=== PATIENT | male | born 1970 | race Caucasian/White ===

== ENCOUNTER → 2021-04-21 14:02 | Outpatient (CLI) | payer OTHER, SELFPAY ==
--- NOTE | ~2021-04-21 | MR_ITS ---
EXAMINATION: MR brain/brain stem wo/w con DATE: 04/21/2021 14:58 INDICATION: Headache, unspecified. TECHNIQUE: Magnetic resonance imaging (MRI) of the brain and brainstem was performed without and with 17 mL MultiHance intravenous contrast. Sequences included sagittal and axial T1-weighted FSE, axial diffusion-weighted FS EPI, axial T2*-weighted GRE, axial T2-weighted FLAIR Propeller, and axial T2-we ighted Propeller. Postcontrast sequences included axial and coronal T1-weighted FSE. Apparent diffusi on coefficient (ADC) maps were created. COMPARISON: Head CT 04/09/2014 FINDINGS: There is no intracranial hemorrhage, acute infarction, or abnormal intracranial mass lesion . The ventricles are normal in size. The mastoid air cells are normal. The paranasal sinuses are alli r. The orbits are normal. IMPRESSION: 1. Normal brain. Reviewed, dictated and finalized at location A. IMPRESSION: 1. Normal brain.
[2021-04-21 14:36] LABS: Estimated Glomerular Filt Rate > 60
== END ==
PROVIDERS: PCP Family Medicine; Visit Provider Family Medicine
DX: R51.9 Headache, unspecified (principal)
CPT/HCPCS: 70553; A9577

== ENCOUNTER 2022-09-24 09:05 | Outpatient (CLI) | payer OTHER, SELFPAY ==
[2022-09-24 11:42] LABS: Kit Draw Collected
== END 2022-09-24 09:06 | disposition home or self-care (01) ==
LOC: ANHGOSHLAB 09:06
PROVIDERS: PCP Family Medicine; Visit Provider Family Medicine
DX: R00.1 Bradycardia, unspecified (principal)
CPT/HCPCS: 36415

== ENCOUNTER 2022-11-23 09:33 | Outpatient (CLI) | payer OTHER, SELFPAY ==
--- NOTE | 2022-11-23 09:48 | ECHO_ITS ---
Patient Info Name: Dandy Fuller Age: 52 years : 1970 Gender: Male Ht: 74 in Wt: 185 lbs BSA: 2.09 m2 HR: 38 bpm BP: 122 / 75 mmHg Heart Rhythm: Sinus Rhythm Technical Quality: Good Exam Date: 11/23/2022 9:54 AM Exam Location: [facility] Patient Status: Outpatient Admit Date: 11/23/2022 Staff Ordering Physician: Abel Wright DO Chef Instructor: Yovana Cruz RDCS Attending Provider: Abel Wright DO Referring Physician: Kyle BETTENCOURT; Exam Type: CA echo doppler color flow Study Info Indications I48.92 - UNSPECIFIED ATRIAL FLUTTER Complete two-dimensional, color flow and Doppler transthoracic echocardiogram is performed. Summary 1. Complete two-dimensional, color flow and Doppler transthoracic echocardiogram is performed. 2. Left ventricular chamber dimension is mildly enlarged. 3. Left ventricular systolic function is normal, estimated at 55-60%. 4. The left ventricular diastolic function is grade I diastolic dysfunction. 5. E/e' 3 is not elevated. 6. Right atrial chamber dimension is mildly enlarged. 7. There is trace tricuspid valve regurgitation. 8. No pulmonary hypertension, estimated pulmonary arterial systolic pressure is 23 mmHg. Left Ventricle E/e' 3 is not elevated. Left ventricular chamber dimension is mildly enlarged. Left ventricular systolic function is normal, estimated at 55-60%. The left ventricular diastolic function is grade I diastolic dysfunction. Right Ventricle Right ventricular systolic function is normal and with normal TAPSE 2.4 cm. Right ventricular chamber dimension is normal. Left Atria Left atrial chamber dimension is normal. Right Atria Right atrial chamber dimension is mildly enlarged. Aortic Valve The aortic valve is trileaflet. There is no aortic valve stenosis. There is no aortic valve regurgitation. Pulmonic Valve There is no pulmonic regurgitation. Mitral Valve There is no mitral valve stenosis. There is no mitral valve regurgitation. Tricuspid Valve There is trace tricuspid valve regurgitation. No pulmonary hypertension, estimated pulmonary arterial systolic pressure is 23 mmHg. Pericardium/Pleural There is no pericardial effusion. Inferior Vena Cava Normal inferior vena cava with >50% collapse upon inspiration consistent with normal right atrial pressure, 5 mmHg. Aorta The aortic root size at the sinus of Valsalva is normal. Left Ventricular Outflow Tract Name Value Normal LVOT 2D LVOT Diameter 2.3 cm LVOT Doppler LVOT Peak Gradient 6 mmHg LVOT Mean Gradient 3 mmHg LVOT VTI 28 cm LVOT VTI/AV VTI Ratio 0.9 LVOT Stroke Volume 120 ml LVOT CO 4.3 l/min LVOT CI 2.0 l/min/m2 Pulmonic Valve Name Value Normal RVOT Doppler
== END 2022-11-23 09:34 | disposition home or self-care (01) ==
PROVIDERS: PCP Family Medicine; Visit Provider Internal Medicine Cardiovascular Disease
DX: I48.92 Unspecified atrial flutter (principal)
CPT/HCPCS: 93306

== ENCOUNTER 2023-01-05 08:28 | Outpatient (CLI) | payer OTHER, SELFPAY ==
--- NOTE | 2023-01-07 15:47 | WPDHOMESLEEP ---
Sleep Study - Home Unattended Date of Study: 01/05/23 Ordering Provider: Abel Wright DO Interpreting Provider: Balbina Bonilla MD Home Sleep Study Type: Watch PAT Height: 1.88 m Weight: 81.647 kg Body Mass Index: 23.1 Neck Circumference (inches): 14.75 [place]: 2 Reason for Sleep Study Daytime sleepiness interfering with his job Sleep History Dandy Fuller is a 52-year-old man with atrial fibrillation who wakes up several times during the night to check the clock. He notices his heart beating quickly at night. He frequently has daytime excessive sleepiness making it difficult for him to do his job. He does not awaken from sleep feeling short of breath. He does not awaken at night with heartburn, belching or coughing. He does not snore and other people do not tell him that he snores loudly. He does not have difficulties sleeping with a cold. He does not wake up gasping for breath at night. He does not have breathing problems at night observed by others. He rarely sweats excessively at night. He frequently notices his heart pounding or beating irregularly at night. Does not fall asleep during the day, does not fall asleep involuntarily or while driving. He does not have loss of muscle tone with strong emotion. He sometimes has daytime difficulties due to excessive sleepiness. He does not feel paralyzed on waking or falling asleep. He does not have vivid dreamlike scenes upon awakening or falling asleep. He does not feel afraid to go to sleep. He rarely has nightmares. He rarely remembers his dreams. He occasionally has racing thoughts. He does not feel sad or depressed. He always has anxiety. He rarely has muscular tension. He rarely notices parts of his body jerking. He rarely kicks at night. He does not have crawling or aching feelings in his legs. He does not have any kind of leg pain at night. He does not have morning jaw pain. He does not grind his teeth during sleep. He is not bothered by pain during the day or awakened by pain during the night. He rarely wakes up feeling stiff in the morning with sore achy muscles. He occasionally wakes with pain in the neck and spine. Has headaches. Normal bedtime is 9:00 p.m. He falls asleep within 20 minutes. He normally wakes 4 times during the night. During these awakenings, he may look at the clock, reposition, and is able to return to sleep in a few minutes, sometimes longer. These awakenings occur in the middle of the night and in the property management specialist hours. He wakes for the day at 5:30 a.m.. On weekends, bedtime is later, 10:00 p.m. and wake time is 1:00 a.m. later, 6:00 a.m. He generally does not take naps. A short nap could be refreshing. He feels better in the morning compared to other times a day. Habits: Never smoked tobacco. Caffeine: has used, now stopped. Alcohol: 3-4 beverages on the weekends. No recreational substances. [facility] Past Medical History Medical History Cervical disc disease Family history of heart disease in male family member before age 55 Orgasmic headache Tension headache Surgical History Surgical History History of arthroplasty of right hip Family History Family History Mother Family history of thyroid disease Diabetes mellitus Father Acute myocardial infarction Other Family history of congenital heart disease Social History Social History Smoking status: Never smoker Alcohol intake: current Medications Home Medications Medication Instructions Recorded Confirmed Type No Home Medications 10/28/22 12/09/22 History Sleep Procedure The sleep study was completed using MyCrowdT a technically adequate device with seven channels: peripheral arterial tone, actigraphy, body position,
[2023-01-07 16:13] VITALS: BMI 23.1
== END 2023-01-06 13:33 | disposition home or self-care (01) ==
PROVIDERS: PCP Family Medicine; Visit Provider Internal Medicine Cardiovascular Disease
DX: G47.10 Hypersomnia, unspecified (principal); I48.91 Unspecified atrial fibrillation
CPT/HCPCS: 95800